=== PATIENT | female | born 1985 | race Asian ===

== ENCOUNTER 2020-05-15 07:47 | Inpatient (IN) | payer OTHER ==
[~2020-05-15] VITALS: Ht 149.9 cm; Wt 45.0 kg
[2020-05-15] MEDS ORDERED: HYDR-4061 PO (07:52)
[2020-05-15] MEDS ORDERED: ONDANSETRON HCL 4 MG/2 ML VIAL IVP ONE (08:30)
[2020-05-15] MEDS ORDERED: MORPHINE SULFATE 4 MG/ML SYRINGE IVP ONE (08:30)
[2020-05-15] MEDS ORDERED: SODIUM CHLORIDE 0.9% 1,000 ML IV ONE (08:30)
[2020-05-15 08:52] LABS: BASOPHILS % (AUTO) 0.3 % (0.0-2.0); HEMATOCRIT 39.6 % (36-46); HEMOGLOBIN 12.2 g/dL (12.0-16.0); LYMPHOCYTES % (AUTO) 8.8 % (22.0-44.0); MEAN CORPUSCULAR HEMOGLOBIN 21.3 pg (26.0-34.0); MEAN CORPUSCULAR HGB CONC 30.9 G/dL (31.0-37.0); MEAN CORPUSCULAR VOLUME 69 fL (80-100); MONOCYTES # (AUTO) 0.4 K/uL (0.1-1.0); MONOCYTES % (AUTO) 3.3 % (2.0-9.0); NEUTROPHILS # (AUTO) 9.7 K/uL (1.8-7.7); PLATELET COUNT (AUTO) 337 K/uL (150-450); RED BLOOD CELL COUNT(AUTO) 5.74 MIL/uL (4.00-5.20); RED CELL DISTRIBUTION WIDTH 15.2 % (11.5-14.5)
[2020-05-15 08:56] LABS: NEUTROPHILS % (AUTO) 86.6 % (40.0-70.0)
[2020-05-15 09:01] LABS: ANION GAP 6 mmol/L (8-16); CALCIUM, TOTAL 8.7 mg/dL (8.8-10.5); CARBON DIOXIDE 27 mmol/L (22-29); CHLORIDE 102 mmol/L (98-107); CREATININE 0.95 mg/dL (0.60-1.30); GLOMERULAR FILTR. RATE CALC > 60 mL/min (>60); GLUCOSE,RANDOM 89 mg/dL (70-110); POTASSIUM 3.9 mmol/L (3.5-5.1); SODIUM SERUM 135 mmol/L (136-145); UREA NITROGEN, BLOOD 11 mg/dL (7-18)
[2020-05-15] MEDS ORDERED: HYDROmorphone 2 MG/ML SYRINGE IVP ONE ×3 (09:15→10:00)
[2020-05-15 09:27] LABS: ALANINE AMINOTRANSFERASE 24 U/L (12-78); ALKALINE PHOSPHATASE 28 U/L (46-116); ASPARTATE AMINOTRANSFERASE 17 U/L (15-37); BILIRUBIN,TOTAL 0.4 mg/dL (0.1-1.0); TOTAL PROTEIN, SERUM 7.6 g/dL (6.4-8.2)
[2020-05-15 09:28] LABS: HCG,QUANTITATIVE 1 mIU/mL (0-6)
[2020-05-15] MEDS ORDERED: IOVERSOL 350 MG/ML 100 ML VIAL ONE (10:00)
[2020-05-15] MEDS ORDERED: SODIUM CHLORIDE 0.9% 100 ML ONE (10:00)
[2020-05-15 10:49] LABS: PROTHROMBIN TIME 10.1 SEC (9.4-11.6)
[2020-05-15] MEDS ORDERED: RINGERS SOLUTION,LACTATED 1,000 ML IV ONE ×2 (12:35→12:45)
[2020-05-15] MEDS ORDERED: ACETAMINOPHEN 325 MG TABLET PO PRN (12:45)
[2020-05-15] MEDS ORDERED: 0.9% SODIUM CHLORIDE 10 ML SYRINGE IVP PRN (12:45)
[2020-05-15] MEDS ORDERED: ONDANSETRON HCL 4 MG/2 ML VIAL IVP PRN ×2 (12:45→17:45)
[2020-05-15] MEDS ORDERED: BUPIVACAINE HCL/PF 0.25% 30 ML VIAL ONE (13:09)
[2020-05-15] MEDS ORDERED: SODIUM CHLORIDE 0.9% 0 ML ONE (13:16)
[2020-05-15] MEDS ORDERED: AMIT75 PO (13:20)
[2020-05-15 17:17] VITALS: BP 130/95
[2020-05-15] MEDS ORDERED: HYDROmorphone 2 MG/ML SYRINGE IVP PRN (17:45)
[2020-05-15] MEDS ORDERED: AMIT10TA6 PO (17:51)
[2020-05-15] MEDS: ACETAMINOPHEN 1000 MG/ISO-OSM 100 ML IV SCH (18:13)
[2020-05-15 19:55] VITALS: BP_SYST 114; BP_SYST 124; BP_DIAS 69; BP_DIAS 73
[2020-05-15 23:30] VITALS: BP 93/55
[2020-05-16] MEDS: ACETAMINOPHEN 1000 MG/ISO-OSM 100 ML IV SCH (02:17)
[2020-05-16 03:45] VITALS: BP 106/64
[2020-05-16] MEDS ORDERED: SUCCINYLCHOLINE CHLORIDE 20 MG/ML 10 ML VIAL IVP ONE (05:57)
[2020-05-16] MEDS ORDERED: LIDOCAINE/PF 2% 5 ML VIAL IM ONE (05:57)
[2020-05-16] MEDS ORDERED: ROCURONIUM BROMIDE 10 MG/ML 5 ML VIAL IVP ONE (05:57)
[2020-05-16] MEDS ORDERED: PROPOFOL 1% 20 ML VIAL IVP ONE (05:57)
[2020-05-16 07:58] VITALS: BP 100/62
[2020-05-16] MEDS ORDERED: ACET-2080 PO (08:58)
[2020-05-16] MEDS ORDERED: IBUP-1506 PO (08:58)
[2020-05-16] MEDS ORDERED: IBUP-2070 PO (11:55)
[2020-05-16] MEDS ORDERED: PERCT PO (11:56)
[2020-05-16] MEDS ORDERED: OxyCODONE HCL/ACETAMINOPHEN 10-325 MG TABLET PO PRN (17:45)
== END 2020-05-16 12:20 | disposition home or self-care (01) | DRG 742 ==
LOC: EMS 07:55 → 6N 12:46
PROVIDERS: ADMIT Obstetrics & Gynecology; ATTEND Obstetrics & Gynecology
PROC: 0UT04ZZ Resection of Right Ovary, Percutaneous Endoscopic Approach (ICD-10-PCS; 2020-05-15)
PROC: 0UB94ZZ Excision of Uterus, Percutaneous Endoscopic Approach (ICD-10-PCS; 2020-05-15)
PROC: 0UT54ZZ Resection of Right Fallopian Tube, Percutaneous Endoscopic Approach (ICD-10-PCS; principal; 2020-05-15 14:00)
DX: D27.0 Benign neoplasm of right ovary (principal); N83.511 Torsion of right ovary and ovarian pedicle; Z87.891 Personal history of nicotine dependence; Z20.828 Contact with and (suspected) exposure to other viral communicable diseases; Z79.899 Other long term (current) drug therapy
CPT/HCPCS: 74177; 76856; 86850; 86900; 86901; 87426; G0238; J0131; J0330; J0690; J1170; J2270; J2405; J2704; J3490; J7030; J7050; J7120

== ENCOUNTER 2022-12-22 23:28 | Emergency (ER) | payer MEDICAID, OTHER ==
[~2022-12-22] VITALS: Ht 147.3 cm; Wt 95.0 kg
[~2022-12-22 23:28] MED LIST: AMIT-166 PO; IBUP-1492 PO; PERCT PO
[2022-12-23 00:51] LABS: BASOPHILS % (AUTO) 0.4 % (0.0-2.0); EOSINOPHILS % (AUTO) 0.6 % (1.0-6.0); HEMATOCRIT 39.3 % (36-46); HEMOGLOBIN 12.7 g/dL (12.0-16.0); LYMPHOCYTES # (AUTO) 1.1 K/uL (1.0-4.8); LYMPHOCYTES % (AUTO) 12.3 % (22.0-44.0); MEAN CORPUSCULAR HEMOGLOBIN 22.3 pg (26.0-34.0); MEAN CORPUSCULAR HGB CONC 32.4 G/dL (31.0-37.0); MEAN CORPUSCULAR VOLUME 69 fL (80-100); MONOCYTES # (AUTO) 0.4 K/uL (0.1-1.0); MONOCYTES % (AUTO) 4.6 % (2.0-9.0); NEUTROPHILS # (AUTO) 7.6 K/uL (1.8-7.7); NEUTROPHILS % (AUTO) 82.1 % (40.0-70.0); PLATELET COUNT (AUTO) 440 K/uL (150-450); RED CELL DISTRIBUTION WIDTH 15.3 % (11.5-14.5)
[2022-12-23 00:59] LABS: ANION GAP 11 mmol/L (8-16); CALCIUM, TOTAL 9.4 mg/dL (8.8-10.5); CARBON DIOXIDE 25 mmol/L (22-29); CHLORIDE 101 mmol/L (98-107); CREATININE 0.94 mg/dL (0.60-1.30); GLOMERULAR FILTR. RATE CALC > 60 mL/min (>60); GLUCOSE,RANDOM 107 mg/dL (70-110); POTASSIUM 3.8 mmol/L (3.5-5.1); SODIUM SERUM 137 mmol/L (136-145); UREA NITROGEN, BLOOD 14 mg/dL (7-18)
[2022-12-23 01:05] LABS: ALANINE AMINOTRANSFERASE 15 U/L (12-78); ALBUMIN 4.4 g/dL (3.4-5.0); ALKALINE PHOSPHATASE 41 U/L (46-116); ASPARTATE AMINOTRANSFERASE 12 U/L (15-37); BILIRUBIN,TOTAL 0.3 mg/dL (0.1-1.0); TOTAL PROTEIN, SERUM 8.2 g/dL (6.4-8.2)
[2022-12-23] MEDS ORDERED: SODIUM CHLORIDE 0.9% 1,000 ML IV ONE ×2 (02:30→06:30)
[2022-12-23] MEDS ORDERED: METOCLOPRAMIDE HCL 5 MG/ML 2 ML VIAL IVP ONE (02:30)
[2022-12-23] MEDS ORDERED: DiphenhydrAMINE HCL 50 MG/ML VIAL IVP ONE ×3 (02:45→08:30)
[2022-12-23] MEDS ORDERED: ONDANSETRON HCL 4 MG/2 ML VIAL IVP ONE (02:45)
[2022-12-23] MEDS ORDERED: HALOPERIDOL LACTATE 5 MG/ML VIAL IVP ONE ×2 (02:45→06:15)
[2022-12-23 03:00] LABS: HCG,QUANTITATIVE < 1 mIU/mL (0-6); LIPASE 241 U/L (73-393)
[2022-12-23] MEDS ORDERED: LORazepam 2 MG/ML VIAL IVP ONE (03:00)
[2022-12-23 06:46] LABS: APPEARANCE,URINE CLEAR (CLEAR); BILIRUBIN,URINE NEGATIVE (NEGATIVE); GLUCOSE, URINE (UA) 150-200 mg/dL (NEGATIVE); KETONES,URINE 80-100 mg/dL (NEGATIVE); LEUKOCYTE ESTERASE ,URINE LARGE (NEGATIVE); NITRATE,URINE NEGATIVE (NEGATIVE); OCCULT BLOOD,URINE SMALL (NEGATIVE); PROTEIN,URINE TRACE mg/dL (NEGATIVE); SPECIFIC GRAVITIY, URINE 1.017 (1.003-1.030); UROBILINOGEN,URINE <=1.0 mg/dL (<=1.0)
[2022-12-23 07:19] LABS: BACTERIA,URINE Few /HPF (None Seen); SQUAMOUS EPITHELIAL CELL,UR Many /LPF (None Seen)
[2022-12-23 07:39] LABS: AMPHET/METH SCREEN,URINE NEGATIVE (NEGATIVE); BARBITURATE SCREEN, URINE NEGATIVE (NEGATIVE); BENZODIAZEPINES SCREEN,URINE NEGATIVE (NEGATIVE); CANNABINOID SCREEN,URINE NEGATIVE (NEGATIVE); COCAINE SCREEN,URINE NEGATIVE (NEGATIVE); METHADONE SCREEN, URINE NEGATIVE (NEGATIVE); OPIATE SCREEN,URINE NEGATIVE (NEGATIVE); PHENCYCLIDINE SCREEN,URINE NEGATIVE (NEGATIVE)
[2022-12-23] MEDS ORDERED: ONDA4TAB10 PO (08:22)
[2022-12-23 08:35] VITALS: BP 147/89
== END 2022-12-23 09:02 | disposition home or self-care (01) ==
LOC: EMS 23:31
DX: R11.2 Nausea with vomiting, unspecified (principal); G43.909 Migraine, unspecified, not intractable, without status migrainosus
CPT/HCPCS: 99285; 80053; 83690; 84484; 84702; 85025; 36415; 81001; 96374; 96375; 71045; 96361; 93005; 96376; 80307 ×2; J1200; J1630; J2060; J2405; J7030

== ENCOUNTER 2025-01-16 18:02 | Emergency (ER) | payer MEDICAID ==
[~2025-01-16] VITALS: Ht 149.9 cm; Wt 43.2 kg
[~2025-01-16 18:02] MED LIST changes: -AMIT-166 PO; +AMIT10TA7 PO; +ONDA-243 PO
[2025-01-16] MEDS ORDERED: FAMO20 PO (18:11)
[2025-01-16 18:12] VITALS: TEMP 98.7
[2025-01-16] MEDS: SODIUM CHLORIDE 0.9% 1,000 ML IV ONE (20:55)
[2025-01-16] MEDS: ONDANSETRON HCL 4 MG/2 ML VIAL IVP ONE (20:56)
[2025-01-16] MEDS ORDERED: ONDANSETRON 4 MG TABLET PO ONE (21:00)
[2025-01-16 21:11] LABS: HEMOGLOBIN 12.8 g/dL (12.0-16.0); RED BLOOD CELL COUNT(AUTO) 5.82 MIL/uL (4.00-5.20); WHITE BLOOD COUNT (AUTO) 6.9 K/uL (4.5-11.0)
[2025-01-16 21:12] LABS: BASOPHILS % (AUTO) 0.5 % (0.0-2.0); EOSINOPHILS % (AUTO) 0.3 % (1.0-6.0); HEMATOCRIT 39.8 % (36-46); LYMPHOCYTES # (AUTO) 0.9 K/uL (1.0-4.8); LYMPHOCYTES % (AUTO) 12.5 % (22.0-44.0); MEAN CORPUSCULAR HEMOGLOBIN 21.9 pg (26.0-34.0); MEAN CORPUSCULAR HGB CONC 32.1 G/dL (31.0-37.0); MEAN CORPUSCULAR VOLUME 68 fL (80-100); MONOCYTES # (AUTO) 0.3 K/uL (0.1-1.0); MONOCYTES % (AUTO) 4.2 % (2.0-9.0); NEUTROPHILS # (AUTO) 5.7 K/uL (1.8-7.7); NEUTROPHILS % (AUTO) 82.5 % (40.0-70.0); PLATELET COUNT (AUTO) 418 K/uL (150-450); RED CELL DISTRIBUTION WIDTH 15.5 % (11.5-14.5)
[2025-01-16 21:14] LABS: RBC MORPHOLOGY COMMENT ABNORMAL RBC MORPH
[2025-01-16 21:19] LABS: ANION GAP 13 mmol/L (8-16); CALCIUM, TOTAL 8.8 mg/dL (8.8-10.5); CARBON DIOXIDE 22 mmol/L (22-29); CHLORIDE 103 mmol/L (98-107); CREATININE 0.88 mg/dL (0.60-1.30); GLOMERULAR FILTR. RATE CALC > 60 mL/min (>60); GLUCOSE,RANDOM 106 mg/dL (70-110); POTASSIUM 3.4 mmol/L (3.5-5.1); SODIUM SERUM 138 mmol/L (136-145); UREA NITROGEN, BLOOD 10 mg/dL (7-18)
[2025-01-16 21:30] LABS: HCG,QUANTITATIVE < 1 mIU/mL (0-6); LIPASE 34 U/L (16-77)
[2025-01-16] MEDS: LORazepam 2 MG/ML VIAL IVP ONE (21:49)
[2025-01-16] MEDS: MORPHINE SULFATE 2 MG/ML SYRINGE IVP ONE (21:50)
[2025-01-16] MEDS: METOCLOPRAMIDE HCL 5 MG/ML 2 ML VIAL IVP ONE (21:50)
[2025-01-16 23:56] LABS: APPEARANCE,URINE CLEAR (CLEAR); BILIRUBIN,URINE NEGATIVE (NEGATIVE); COLOR,URINE LIGHT YELLOW (YELLOW); GLUCOSE, URINE (UA) 70-100 mg/dL (NEGATIVE); KETONES,URINE 80-100 mg/dL (NEGATIVE); LEUKOCYTE ESTERASE ,URINE TRACE (NEGATIVE); NITRATE,URINE NEGATIVE (NEGATIVE); OCCULT BLOOD,URINE SMALL (NEGATIVE); PROTEIN,URINE 30-70 mg/dL (NEGATIVE); UROBILINOGEN,URINE <=1.0 mg/dL (<=1.0)
[2025-01-16 23:57] VITALS: BP 126/85; PULSE 103; RESP 18; O2SAT 99
[2025-01-17 00:02] LABS: ALCOHOL, URINE DRUG SCREEN NEGATIVE (NEGATIVE); AMPHET/METH SCREEN,URINE NEGATIVE (NEGATIVE); BARBITURATE SCREEN, URINE NEGATIVE (NEGATIVE); BENZODIAZEPINES SCREEN,URINE NEGATIVE (NEGATIVE); CANNABINOID SCREEN,URINE NEGATIVE (NEGATIVE); COCAINE SCREEN,URINE NEGATIVE (NEGATIVE); METHADONE SCREEN, URINE NEGATIVE (NEGATIVE); OPIATE SCREEN,URINE POSITIVE (NEGATIVE); PHENCYCLIDINE SCREEN,URINE NEGATIVE (NEGATIVE)
[2025-01-17 00:15] LABS: BACTERIA,URINE None Seen /HPF (None Seen); RBC,URINE 0-2 /HPF (0-2); SQUAMOUS EPITHELIAL CELL,UR Few /LPF (None Seen); WBC,URINE 0-2 /HPF (0-5)
[2025-01-17] MEDS: LORazepam 2 MG/ML VIAL IVP ONE ×2 (00:22→02:53)
[2025-01-17] MEDS ORDERED: ONDA-104 PO (03:00)
== END 2025-01-17 03:09 | disposition home or self-care (01) ==
LOC: EMS 18:02
DX: G43.D0 Abdominal migraine, not intractable (principal); R11.2 Nausea with vomiting, unspecified; Z98.890 Other specified postprocedural states
CPT/HCPCS: 99284; 96374; 96375; 96361; 80048; 81001; 83690; 84702; 85025; 36415; 80307; 96376; J2060 ×2; J2765; J2270; J2405; Q0162; J7030